=== PATIENT | male | born 1970 | race Asian ===

== ENCOUNTER 2019-04-18 20:36 | Emergency (ER) | payer OTHER, BC ==
[2019-04-18] MEDS ORDERED: Tetracaine HCl/PF 0.5% 4 ML Bottle EYEBOTH ONE (23:01)
[2019-04-18] MEDS ORDERED: Erythromycin Base 0.5% Ophth Oint 1 GM Tube EYEBOTH ONE (23:30)
--- NOTE | 2019-04-18 23:30 | EDM.PDOC ---
ED HPI GENERAL MEDICAL PROBLEM - General Chief Complaint: Eye Problems Stated Complaint: ACID/SALT IN EYES Time Seen by Provider: 04/18/19 22:00 Source of Information: Reports: Patient History Limitations: Reports: No Limitations - History of Present Illness INITIAL COMMENTS - FREE TEXT/NARRATIVE: Patient is a 48-year-old male no past medical history presenting with chief complaint of fluid exposure to the eye. 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 Patient has a SDS sheet which seems to indicate an industrial acid that was in his eye. This happened around 430 this afternoon. Patient immediately flushed the eyes. In addition, patient states he stripped all his clothes off and took a shower. Patient then flushed his eyes again. Patient reports feeling burning in both of his eyes but no foreign body sensation. Patient has some slight blurring of his vision. Patient denies any other trauma denies any shortness of breath, nausea, vomiting. Pmhx: None Pshx: None Family Hx: noncontributory Smoking history? no Etoh use? none Drug use? none Review of systems completed otherwise negative. I have reviewed the triage vital signs Const: Well nourished, well developed, appears stated age Eyes: Visual acuity is 20/25 bilaterally. Patient has bilateral conjunctival injection. Pupils are equal reactive to light. Patient has normal eyelids. Fluorescein stain performed as well as slit-lamp examination with no significant abnormalities. HENT: NCAT, Neck supple without meningismus CV: RRR, Warm, well-perfused extremities RESP: CTAB, Unlabored respiratory effort GI: soft, non-tender, non-distended, no masses Neuro: Alert, differential repairer II-XII grossly intact. Sensation and motor function of extremities grossly intact. Psych: Appropriate mood and affect Assessment and plan: Patient is a 48-year-old male presenting with chemical exposure to the eye. Case was discussed with [facility] case #[id number]. They indicate that the fluid exposure was likely ascitic and there is no further management required other than ophthalmology follow-up. Patient had Marcelino lens irrigation for approximately 30 minutes in the emergency department. pH evaluated after the Marcelino lens was 7. Case discussed with Dr. Jonas over the phone to arrange for follow-up. Patient was given a 7:30 AM appointment tomorrow morning with ophthalmology. All questions addressed and answered. Patient agrees with plan Bilateral Eye Pain Score (Numeric/FACES): 2 - Related Data Allergies Allergy/AdvReac Type Severity Reaction Status Date / Time Penicillins Allergy Other Verified 04/18/19 21:17 Home Meds: Home Meds Lactase [Lactaid] 1 tab PO DAILY 04/18/19 [History] Past Medical History Cardiovascular History: Reports: None Respiratory History: Reports: None Gastrointestinal History: Reports: Hemorrhoids Genitourinary History: Reports: None Musculoskeletal History: Reports: None Neurological History: Reports: None Psychiatric History: Reports: None Endocrine/Metabolic History: Reports: None Hematologic History: Reports: None Immunologic History: Reports: None Oncologic (Cancer) History: Reports: None Dermatologic History: Reports: None - Infectious Disease History Infectious Disease History: Reports: None - Past Surgical History Head Surgeries/Procedures: Reports: None HEENT Surgical History: Reports: LASIK Social & Family History - Tobacco Use Smoking Status *Q: Current Every Day Smoker Years of Tobacco use: 28 Packs/Tins Daily: 0.5 - Recreational Drug Use Recreational Drug Use: No ED ROS GENERAL - Review of Systems Review Of Systems: See Below ED EXAM GENERAL W FULL EYE - Physical Exam Exam: See Below Course - Vital Signs Last Recorded V/S: Last Vital Signs Temp 36.8 C 04/18/19 21:09 Pulse 87 04/18/19 21:09 Resp 16 04/18/19 21:09 BP 132/95 H 04/18/19 21:09 Pulse Ox 98 04/18/19 21:09 - Orders/Labs/Meds Meds: Medications Discontinued Medications Generic Name Dose Route Start Last Admin Trade Name Hortencia PRN Reason Stop Dose Admin Erythromycin 1 gm 04/18/19 23:30 Erythromycin 0.5% Ophth Oint EYEBOTH 04/18/19 23:31 ONETIME ONE Tetracaine HCl 1 ml 04/18/19 23:01 04/18/19 23:16 Tetracaine 0.5% Steri-Unit Mouna EYEBOTH 04/18/19 23:02 2 drop ASDIRECTED ONE Administration Departure - Departure Time of Disposition: 23:43 Disposition: Home, Self-Care 01 Clinical Impression: Chemical exposure of eye - Discharge Information Referrals: PCP,None [Primary Care Provider] - Forms: ED Department Discharge Additional Instructions: The following information is given to patients seen in the emergency department who are being discharged to home. This information is to outline your options for follow-up care. We provide all patients seen in our emergency department with a follow-up referral. The need for follow-up, as well as the timing and circumstances, are variable depending upon the specifics of your emergency department visit. If you don't have a primary care physician on staff, we will provide you with a referral. We always advise you to contact your personal physician following an emergency department visit to inform them of the circumstance of the visit and for follow-up with them and/or the need for any referrals to a consulting specialist. The emergency department will also refer you to a specialist when appropriate. This referral assures that you have the opportunity for follow-up care with a specialist. All of these measure are taken in an effort to provide you with optimal care, which includes your follow-up. Under all circumstances we always encourage you to contact your private physician who remains a resource for coordinating your care. When calling for follow-up care, please make the office aware that this follow-up is from your recent emergency room visit. If for any reason you are refused follow-up, please contact the [facility] Emergency Department at and asked to speak to the emergency department charge nurse. Please go to ophthalmology clinic tomorrow morning at 7:[address] Jonas. Sepsis Event Note - Evaluation Sepsis Screening Result: No Definite Risk - Focused Exam Vital Signs: Vital Signs Temp Pulse Resp BP Pulse Ox 04/18/19 21:09 36.8 C 87 16 132/95 H 98 Date Exam was Performed: 04/18/19 Time Exam was Performed: 23:39
== END 2019-04-18 23:46 | disposition home or self-care (01) ==
LOC: MW.ED 20:36
DX: Z77.098 Contact with and (suspected) exposure to other hazardous, chiefly nonmedicinal, chemicals (principal); F17.210 Nicotine dependence, cigarettes, uncomplicated; Z88.0 Allergy status to penicillin; Z79.899 Other long term (current) drug therapy
CPT/HCPCS: 99283; A9270